=== PATIENT | male | born 1990 | race Caucasian/White ===

== ENCOUNTER 2018-11-05 01:33 | Emergency (ER) | payer OTHER | END 2018-11-05 03:35 | disposition home or self-care (01) | LOC: FTE 01:33 | DX: S40.812A Abrasion of left upper arm, initial encounter (principal); S19.9XXA Unspecified injury of neck, initial encounter; V49.49XA Driver injured in collision with other motor vehicles in traffic accident, initial encounter | CPT/HCPCS: 99283; Z7502 ==